=== PATIENT | male | born 1970 | race African-American/Black ===

== ENCOUNTER 2016-10-07 05:58 | Inpatient (IN) | payer MEDICAID ==
[~2016-10-07] VITALS: Ht 177.8 cm; Wt 96.2 kg
[~2016-10-07 05:58] MED LIST: ARIP10TA14 PO; SERT100T12 PO
[2016-10-07 08:43] VITALS: BP 142/80
[2016-10-07] MEDS ORDERED: RISP4 PO (08:58)
[2016-10-07] MEDS ORDERED: LORazepam 2 MG TABLET PO PRN (09:00)
[2016-10-07] MEDS ORDERED: ZOLPIDEM TARTRATE 10 MG TABLET PO PRN (09:00)
[2016-10-07] MEDS ORDERED: HALOPERIDOL 5 MG TABLET PO PRN (09:00)
[2016-10-07 10:08] VITALS: BP 141/81
[2016-10-07] MEDS ORDERED: PNEUMOCOCCAL VACCINE POLYVALENT 0.5 ML VIAL [PPSV23] IM ONE (13:00)
[2016-10-07] MEDS: BENZOCAINE/MENTHOL LOZENGE PO PRN (17:24)
[2016-10-07 17:38] VITALS: BP 138/91
[2016-10-07] MEDS ORDERED: OLANZapine 5 MG TABLET PO SCH (21:00)
[2016-10-08 00:45] VITALS: BP 125/82
[2016-10-08 08:27] VITALS: BP 130/80
[2016-10-08] MEDS ORDERED: BENZOCAINE/MENTHOL LOZENGE MM PRN (09:00)
[2016-10-08] MEDS ORDERED: ACETAMINOPHEN 325 MG TABLET PO PRN (09:00)
[2016-10-08] MEDS ORDERED: ALBUTEROL SULFATE HFA 90 MCG/PUFF 8 GM INHALER IH PRN (09:00)
[2016-10-08] MEDS ORDERED: FLUoxetine HCL 20 MG CAPSULE PO SCH (09:00)
[2016-10-08] MEDS ORDERED: IBUPROFEN 600 MG TABLET PO PRN (09:00)
[2016-10-08] MEDS ORDERED: PETROLATUM,WHITE 71 GM JELLY TP PRN (09:00)
[2016-10-08] MEDS ORDERED: BACITRACIN 28.4 GM OINTMENT TP PRN (09:00)
[2016-10-08] MEDS ORDERED: CloNIDine HCL 0.1 MG TABLET PO PRN (09:00)
[2016-10-08] MEDS ORDERED: ONDANSETRON HCL 4 MG TABLET PO PRN (09:00)
[2016-10-08] MEDS ORDERED: MAGNESIUM HYDROXIDE SUSPENSION 30 ML UDCUP PO PRN (09:00)
[2016-10-08] MEDS ORDERED: MAG HYDROX/AL HYDROX/SIMETH ES 30 ML SUSPENSION UDCUP PO PRN (09:00)
[2016-10-08] MEDS ORDERED: LOPERAMIDE HCL 2 MG CAPSULE PO PRN (09:00)
[2016-10-08] MEDS: CHOLECALCIFEROL (VIT D3) 1,000 UNITS TABLET PO SCH (09:02)
[2016-10-08] MEDS: BENZOCAINE/MENTHOL LOZENGE PO PRN (11:44)
[2016-10-08] MEDS ORDERED: BENZOCAINE 10% 7 GM GEL TP PRN (11:45)
[2016-10-08 16:00] VITALS: BP 126/73
[2016-10-08] MEDS: MIRTAZAPINE 30 MG TABLET PO SCH (21:09)
[2016-10-08] MEDS: RisperiDONE 4 MG TABLET PO SCH (21:09)
[2016-10-09 07:05] VITALS: BP 141/83
[2016-10-09 09:30] VITALS: BP 120/68
[2016-10-09] MEDS: CHOLECALCIFEROL (VIT D3) 1,000 UNITS TABLET PO SCH (10:15)
[2016-10-09] MEDS: LISINOPRIL 10 MG TABLET PO SCH (10:15)
[2016-10-09 16:00] VITALS: BP 110/64
[2016-10-09] MEDS: RisperiDONE 4 MG TABLET PO SCH (20:29)
[2016-10-09] MEDS: MIRTAZAPINE 30 MG TABLET PO SCH (20:29)
[2016-10-10 03:24] VITALS: BP 110/70
[2016-10-10 08:05] VITALS: BP 125/73
[2016-10-10] MEDS: LISINOPRIL 10 MG TABLET PO SCH (08:12)
[2016-10-10] MEDS: CHOLECALCIFEROL (VIT D3) 1,000 UNITS TABLET PO SCH (08:13)
[2016-10-10 16:00] VITALS: BP 123/73
[2016-10-10] MEDS: RisperiDONE 4 MG TABLET PO SCH (20:16)
[2016-10-10] MEDS: MIRTAZAPINE 30 MG TABLET PO SCH (20:16)
[2016-10-11 00:39] VITALS: BP 140/79
[2016-10-11 08:11] VITALS: BP 122/73
[2016-10-11 08:25] LABS: BASOPHILS % (AUTO) 0.8 % (0.0-2.0); EOSINOPHILS % (AUTO) 5.5 % (1.0-6.0); HEMATOCRIT 40.4 % (41-53); HEMOGLOBIN 12.6 g/dL (13.5-17.5); LYMPHOCYTES # (AUTO) 1.8 K/uL (1.0-4.8); LYMPHOCYTES % (AUTO) 46.7 % (22.0-44.0); MEAN CORPUSCULAR HEMOGLOBIN 26.2 pg (26.0-34.0); MEAN CORPUSCULAR HGB CONC 31.3 G/dL (31.0-37.0); MEAN CORPUSCULAR VOLUME 84 fL (80-100); MONOCYTES # (AUTO) 0.5 K/uL (0.1-1.0); MONOCYTES % (AUTO) 12.3 % (2.0-9.0); NEUTROPHILS # (AUTO) 1.3 K/uL (1.8-7.7); NEUTROPHILS % (AUTO) 34.7 % (40.0-70.0); PLATELET COUNT (AUTO) 305 K/uL (150-450); RED BLOOD CELL COUNT(AUTO) 4.82 MIL/uL (4.50-5.90); RED CELL DISTRIBUTION WIDTH 12.9 % (11.5-14.5); WHITE BLOOD COUNT (AUTO) 3.9 K/uL (4.5-11.0)
[2016-10-11] MEDS: LISINOPRIL 10 MG TABLET PO SCH (08:35)
[2016-10-11] MEDS: CHOLECALCIFEROL (VIT D3) 1,000 UNITS TABLET PO SCH (08:35)
[2016-10-11 09:07] LABS: ALANINE AMINOTRANSFERASE 49 U/L (12-78); ALBUMIN 3.6 g/dL (3.4-5.0); ANION GAP 8 mmol/L (8-16); ASPARTATE AMINOTRANSFERASE 23 U/L (15-37); BILIRUBIN,TOTAL 0.3 mg/dL (0.1-1.0); CALCIUM, TOTAL 8.7 mg/dL (8.8-10.5); CARBON DIOXIDE 29 mmol/L (22-29); CHLORIDE 102 mmol/L (98-107); CREATININE 0.96 mg/dL (0.60-1.30); GLOMERULAR FILTR. RATE CALC > 60 mL/min (>60); SODIUM SERUM 139 mmol/L (136-145); TOTAL PROTEIN, SERUM 7.1 g/dL (6.4-8.2); UREA NITROGEN, BLOOD 12 mg/dL (7-18)
[2016-10-11 17:32] VITALS: BP 124/73
[2016-10-11] MEDS: RisperiDONE 4 MG TABLET PO SCH (20:05)
[2016-10-11] MEDS: MIRTAZAPINE 30 MG TABLET PO SCH (20:06)
[2016-10-12 00:01] VITALS: BP 124/65
[2016-10-12] MEDS: FERROUS SULFATE 325 MG EC TABLET PO SCH ×2 (07:00→16:16)
[2016-10-12 08:12] VITALS: BP 117/60
[2016-10-12] MEDS: LISINOPRIL 10 MG TABLET PO SCH (08:59)
[2016-10-12] MEDS: CHOLECALCIFEROL (VIT D3) 1,000 UNITS TABLET PO SCH (08:59)
[2016-10-12 16:00] VITALS: BP 117/71
[2016-10-12] MEDS: MIRTAZAPINE 30 MG TABLET PO SCH (20:42)
[2016-10-12] MEDS: RisperiDONE 4 MG TABLET PO SCH (20:42)
[2016-10-13 00:35] VITALS: BP 113/60
[2016-10-13] MEDS: FERROUS SULFATE 325 MG EC TABLET PO SCH (06:47)
[2016-10-13 08:03] VITALS: BP 130/76
[2016-10-13] MEDS: LISINOPRIL 10 MG TABLET PO SCH (08:09)
[2016-10-13] MEDS: CHOLECALCIFEROL (VIT D3) 1,000 UNITS TABLET PO SCH (08:09)
[2016-10-13] MEDS ORDERED: MIRT30 PO (11:34)
[2016-10-13] MEDS ORDERED: FERR-89 PO (11:35)
[2016-10-13] MEDS ORDERED: CHOL100034 PO (11:37)
[2016-10-13] MEDS ORDERED: LISI-661 PO (11:49)
[2016-10-13] MEDS ORDERED: MIRTAZAPINE 15 MG TABLET PO SCH (21:00)
== END 2016-10-13 13:37 | disposition home or self-care (01) | DRG 750 ==
LOC: EDSTATUS 05:58 → B2S 08:59
PROVIDERS: ADMIT Psychiatry & Neurology Psychiatry; ATTEND Psychiatry & Neurology Psychiatry
DX: F25.0 Schizoaffective disorder, bipolar type (principal); F15.20 Other stimulant dependence, uncomplicated; I10 Essential (primary) hypertension; E55.9 Vitamin D deficiency, unspecified; Z59.0 Homelessness; K59.00 Constipation, unspecified; G47.00 Insomnia, unspecified; D64.9 Anemia, unspecified; Z23 Encounter for immunization; Z91.14 Patient's other noncompliance with medication regimen
CPT/HCPCS: 82306; 90471

== ENCOUNTER 2017-11-15 03:08 | Inpatient (IN) | payer MEDICAID ==
[~2017-11-15] VITALS: Ht 172.7 cm; Wt 83.4 kg
[~2017-11-15 03:08] MED LIST changes: -ARIP10TA14 PO; +CHOL100034 PO; +FERR-89 PO; +LISI-661 PO; +MIRT30 PO; +RISP4 PO; -SERT100T12 PO
[2017-11-15 05:05] LABS: BASOPHILS % (AUTO) 0.6 % (0.0-2.0); EOSINOPHILS % (AUTO) 2.7 % (1.0-6.0); HEMATOCRIT 31.8 % (41-53); HEMOGLOBIN 10.6 g/dL (13.5-17.5); LYMPHOCYTES # (AUTO) 1.5 K/uL (1.0-4.8); LYMPHOCYTES % (AUTO) 17.6 % (22.0-44.0); MEAN CORPUSCULAR HEMOGLOBIN 27.6 pg (26.0-34.0); MEAN CORPUSCULAR HGB CONC 33.4 G/dL (31.0-37.0); MEAN CORPUSCULAR VOLUME 83 fL (80-100); MONOCYTES # (AUTO) 0.7 K/uL (0.1-1.0); MONOCYTES % (AUTO) 7.9 % (2.0-9.0); NEUTROPHILS # (AUTO) 6.1 K/uL (1.8-7.7); NEUTROPHILS % (AUTO) 71.2 % (40.0-70.0); PLATELET COUNT (AUTO) 420 K/uL (150-450); RED BLOOD CELL COUNT(AUTO) 3.86 MIL/uL (4.50-5.90); RED CELL DISTRIBUTION WIDTH 13.2 % (11.5-14.5)
[2017-11-15 05:12] LABS: ANION GAP 6 mmol/L (8-16); CALCIUM, TOTAL 8.1 mg/dL (8.8-10.5); CARBON DIOXIDE 27 mmol/L (22-29); CHLORIDE 105 mmol/L (98-107); CREATININE 0.97 mg/dL (0.60-1.30); GLOMERULAR FILTR. RATE CALC > 60 mL/min (>60); GLUCOSE,RANDOM 109 mg/dL (70-110); POTASSIUM 3.6 mmol/L (3.5-5.1); SODIUM SERUM 138 mmol/L (136-145); UREA NITROGEN, BLOOD 18 mg/dL (7-18)
[2017-11-15 05:17] LABS: ALANINE AMINOTRANSFERASE 55 U/L (12-78); ALBUMIN 2.9 g/dL (3.4-5.0); ALKALINE PHOSPHATASE 78 U/L (46-116); ASPARTATE AMINOTRANSFERASE 26 U/L (15-37); BILIRUBIN,TOTAL 0.5 mg/dL (0.1-1.0); TOTAL PROTEIN, SERUM 7.7 g/dL (6.4-8.2)
[2017-11-15] MEDS ORDERED: HALOPERIDOL 5 MG TABLET PO PRN (06:45)
[2017-11-15] MEDS ORDERED: ZOLPIDEM TARTRATE 10 MG TABLET PO PRN (06:45)
[2017-11-15 16:31] VITALS: BP 131/85
[2017-11-15] MEDS: PENICILLIN V POTASSIUM 500 MG TABLET PO SCH (21:34)
[2017-11-16 01:00] VITALS: BP 123/69
[2017-11-16 08:00] VITALS: BP 132/76
[2017-11-16] MEDS: PENICILLIN V POTASSIUM 500 MG TABLET PO SCH ×4 (08:29→20:33)
[2017-11-16 08:52] LABS: CHOL/HDL RATIO 2.9 (4.2-7.3)
[2017-11-16] MEDS ORDERED: ACETAMINOPHEN 325 MG TABLET PO PRN (11:00)
[2017-11-16] MEDS ORDERED: MAGNESIUM HYDROXIDE SUSPENSION 30 ML UDCUP PO PRN (11:00)
[2017-11-16] MEDS ORDERED: MAG HYDROX/AL HYDROX/SIMETH ES 30 ML SUSPENSION UDCUP PO PRN (11:00)
[2017-11-16] MEDS ORDERED: IBUPROFEN 400 MG TABLET PO PRN (11:00)
[2017-11-16] MEDS ORDERED: ONDANSETRON HCL 4 MG TABLET PO PRN ×2 (11:00)
[2017-11-16] MEDS ORDERED: ALBUTEROL SULFATE HFA 90 MCG/PUFF 8 GM INHALER IH PRN (11:00)
[2017-11-16] MEDS ORDERED: DOCUSATE SODIUM 100 MG CAPSULE PO PRN (11:00)
[2017-11-16] MEDS ORDERED: PETROLATUM,WHITE 71 GM JELLY TP PRN (11:00)
[2017-11-16 16:15] VITALS: BP 136/78
[2017-11-16] MEDS: FERROUS SULFATE 325 MG EC TABLET PO SCH (17:13)
[2017-11-16] MEDS: CALCIUM OYSTER SHELL 500 MG TABLET PO SCH (17:13)
[2017-11-16] MEDS: RisperiDONE 2 MG TABLET PO SCH (20:33)
[2017-11-17 01:32] VITALS: BP 113/73
[2017-11-17] MEDS: FERROUS SULFATE 325 MG EC TABLET PO SCH ×2 (06:38→16:07)
[2017-11-17 08:23] VITALS: BP 116/82
[2017-11-17 08:41] LABS: HEMOGLOBIN A1C 6.3 % (4.5-6.2)
[2017-11-17] MEDS: CHOLECALCIFEROL (VIT D3) 1,000 UNITS TABLET PO SCH (08:41)
[2017-11-17] MEDS: PENICILLIN V POTASSIUM 500 MG TABLET PO SCH ×4 (08:42→20:08)
[2017-11-17] MEDS: CALCIUM OYSTER SHELL 500 MG TABLET PO SCH ×3 (08:42→16:07)
[2017-11-17] MEDS: LISINOPRIL 10 MG TABLET PO SCH (08:42)
[2017-11-17 09:19] LABS: CHOL/HDL RATIO 3.3 (4.2-7.3); THYROID STIMULATING HORMONE 0.71 uIU/mL (0.36-3.74)
[2017-11-17 16:05] VITALS: BP 127/92
[2017-11-17] MEDS: RisperiDONE 2 MG TABLET PO SCH (20:08)
[2017-11-18 06:29] VITALS: BP 124/77
[2017-11-18] MEDS: FERROUS SULFATE 325 MG EC TABLET PO SCH ×2 (06:47→17:00)
[2017-11-18 08:16] VITALS: BP 117/69
[2017-11-18] MEDS: PENICILLIN V POTASSIUM 500 MG TABLET PO SCH ×3 (08:42→17:00)
[2017-11-18] MEDS: CALCIUM OYSTER SHELL 500 MG TABLET PO SCH ×3 (08:43→17:00)
[2017-11-18] MEDS: CHOLECALCIFEROL (VIT D3) 1,000 UNITS TABLET PO SCH (08:43)
[2017-11-18] MEDS: LISINOPRIL 10 MG TABLET PO SCH (08:43)
[2017-11-18 20:46] VITALS: BP 136/79
[2017-11-18] MEDS: RisperiDONE 2 MG TABLET PO SCH (21:37)
[2017-11-19] MEDS: FERROUS SULFATE 325 MG EC TABLET PO SCH ×2 (08:00→16:30)
[2017-11-19] MEDS: CEPHALEXIN MONOHYDRATE 500 MG CAPSULE PO SCH ×3 (08:01→16:30)
[2017-11-19] MEDS: CHOLECALCIFEROL (VIT D3) 1,000 UNITS TABLET PO SCH (08:01)
[2017-11-19] MEDS: LISINOPRIL 10 MG TABLET PO SCH (08:01)
[2017-11-19] MEDS: SULFAMETHOX/TRIMETH DS 800-160 MG/TABLET PO SCH ×2 (08:01→16:30)
[2017-11-19] MEDS: CALCIUM OYSTER SHELL 500 MG TABLET PO SCH ×3 (08:01→16:30)
[2017-11-19 08:32] VITALS: BP 129/89
[2017-11-19] MEDS ORDERED: SULFAMETHOX/TRIMETH DS 800-160 MG/TABLET PO SCH (09:00)
[2017-11-19] MEDS ORDERED: CEPHALEXIN MONOHYDRATE 500 MG CAPSULE PO SCH (09:00)
[2017-11-19 16:00] VITALS: BP 140/93
[2017-11-19] MEDS: RisperiDONE 2 MG TABLET PO SCH (21:35)
[2017-11-20] MEDS: FERROUS SULFATE 325 MG EC TABLET PO SCH ×2 (06:50→16:29)
[2017-11-20 08:15] VITALS: BP 121/78
[2017-11-20] MEDS: CEPHALEXIN MONOHYDRATE 500 MG CAPSULE PO SCH ×3 (08:30→16:29)
[2017-11-20] MEDS: SULFAMETHOX/TRIMETH DS 800-160 MG/TABLET PO SCH ×2 (08:30→16:29)
[2017-11-20] MEDS: CHOLECALCIFEROL (VIT D3) 1,000 UNITS TABLET PO SCH (08:30)
[2017-11-20] MEDS: LISINOPRIL 10 MG TABLET PO SCH (08:31)
[2017-11-20] MEDS: CALCIUM OYSTER SHELL 500 MG TABLET PO SCH ×3 (08:31→16:29)
[2017-11-20] MEDS ORDERED: CARBAMIDE PEROXIDE 6.5% 15 ML OTIC SOLUTION AS ONE (10:00)
[2017-11-20 21:07] VITALS: BP 136/81
[2017-11-20] MEDS: RisperiDONE 2 MG TABLET PO SCH (21:32)
[2017-11-21] MEDS: FERROUS SULFATE 325 MG EC TABLET PO SCH ×2 (06:52→16:05)
[2017-11-21 08:08] VITALS: BP 102/75
[2017-11-21] MEDS: SULFAMETHOX/TRIMETH DS 800-160 MG/TABLET PO SCH ×2 (08:39→16:06)
[2017-11-21] MEDS: CEPHALEXIN MONOHYDRATE 500 MG CAPSULE PO SCH ×3 (08:40→16:06)
[2017-11-21] MEDS: LISINOPRIL 10 MG TABLET PO SCH (08:41)
[2017-11-21] MEDS: CALCIUM OYSTER SHELL 500 MG TABLET PO SCH ×3 (08:41→16:05)
[2017-11-21] MEDS: CHOLECALCIFEROL (VIT D3) 1,000 UNITS TABLET PO SCH (08:41)
[2017-11-21 16:48] VITALS: BP 132/74
[2017-11-21] MEDS: RisperiDONE 2 MG TABLET PO SCH (20:19)
[2017-11-22] MEDS: FERROUS SULFATE 325 MG EC TABLET PO SCH ×2 (06:47→16:22)
[2017-11-22] MEDS: SULFAMETHOX/TRIMETH DS 800-160 MG/TABLET PO SCH ×2 (08:54→16:22)
[2017-11-22] MEDS: LORazepam 2 MG TABLET PO PRN ×2 (08:54→16:24)
[2017-11-22] MEDS: CHOLECALCIFEROL (VIT D3) 1,000 UNITS TABLET PO SCH (08:54)
[2017-11-22] MEDS: CEPHALEXIN MONOHYDRATE 500 MG CAPSULE PO SCH ×3 (08:54→16:22)
[2017-11-22] MEDS: LISINOPRIL 10 MG TABLET PO SCH (08:54)
[2017-11-22] MEDS: MULTIVITAMINS WITH MINERALS, THERAPEUTIC TABLET PO SCH (08:54)
[2017-11-22] MEDS: CALCIUM OYSTER SHELL 500 MG TABLET PO SCH ×3 (08:55→16:23)
[2017-11-22 10:32] VITALS: BP 138/76
[2017-11-22 16:00] VITALS: BP 101/69
[2017-11-22] MEDS: RisperiDONE 2 MG TABLET PO SCH (20:24)
[2017-11-23] MEDS: FERROUS SULFATE 325 MG EC TABLET PO SCH ×2 (06:58→17:30)
[2017-11-23] MEDS: CEPHALEXIN MONOHYDRATE 500 MG CAPSULE PO SCH ×3 (07:49→17:55)
[2017-11-23] MEDS: MULTIVITAMINS WITH MINERALS, THERAPEUTIC TABLET PO SCH (07:49)
[2017-11-23] MEDS: LISINOPRIL 10 MG TABLET PO SCH (07:50)
[2017-11-23] MEDS: SULFAMETHOX/TRIMETH DS 800-160 MG/TABLET PO SCH ×2 (07:50→17:55)
[2017-11-23] MEDS: CHOLECALCIFEROL (VIT D3) 1,000 UNITS TABLET PO SCH (07:50)
[2017-11-23] MEDS: CALCIUM OYSTER SHELL 500 MG TABLET PO SCH ×3 (07:59→17:55)
[2017-11-23 08:01] VITALS: BP 102/81
[2017-11-23] MEDS: LORazepam 2 MG TABLET PO PRN (15:54)
[2017-11-23 16:30] VITALS: BP 130/79
[2017-11-23] MEDS: RisperiDONE 2 MG TABLET PO SCH (21:38)
[2017-11-24] MEDS: FERROUS SULFATE 325 MG EC TABLET PO SCH (07:54)
[2017-11-24 08:05] VITALS: BP 95/56
[2017-11-24] MEDS: CEPHALEXIN MONOHYDRATE 500 MG CAPSULE PO SCH (08:29)
[2017-11-24] MEDS: CHOLECALCIFEROL (VIT D3) 1,000 UNITS TABLET PO SCH (08:29)
[2017-11-24] MEDS: LISINOPRIL 10 MG TABLET PO SCH (08:29)
[2017-11-24] MEDS: MULTIVITAMINS WITH MINERALS, THERAPEUTIC TABLET PO SCH (08:30)
[2017-11-24] MEDS: SULFAMETHOX/TRIMETH DS 800-160 MG/TABLET PO SCH (08:30)
[2017-11-24] MEDS: CALCIUM OYSTER SHELL 500 MG TABLET PO SCH (08:30)
[2017-11-24] MEDS ORDERED: OSCD250 PO (10:06)
== END 2017-11-24 10:30 | disposition home or self-care (01) | DRG 750 ==
LOC: EMS 03:09 → B2S 14:58 → 3EC 11-18 19:15
DX: F25.1 Schizoaffective disorder, depressive type (principal); E46 Unspecified protein-calorie malnutrition; E83.51 Hypocalcemia; R45.851 Suicidal ideations; E88.09 Other disorders of plasma-protein metabolism, not elsewhere classified; R45.850 Homicidal ideations; D64.9 Anemia, unspecified; M79.673 Pain in unspecified foot; I10 Essential (primary) hypertension; Z59.0 Homelessness; Z79.899 Other long term (current) drug therapy; Z91.19 Patient's noncompliance with other medical treatment and regimen; Z68.28 Body mass index [BMI] 28.0-28.9, adult
CPT/HCPCS: 82728; 83036; 83540; 83550; 84443; 87081; 99285; G0480

== ENCOUNTER 2017-11-18 15:38 | Emergency (ER) | payer MEDICAID ==
[~2017-11-18] VITALS: Ht 172.7 cm; Wt 86.4 kg
[2017-11-18] MEDS ORDERED: 0.9% SODIUM CHLORIDE 10 ML SYRINGE IVP PRN (16:45)
[2017-11-18 17:21] LABS: BASOPHILS % (AUTO) 1.4 % (0.0-2.0); EOSINOPHILS % (AUTO) 3.6 % (1.0-6.0); HEMATOCRIT 33.4 % (41-53); HEMOGLOBIN 11.1 g/dL (13.5-17.5); LYMPHOCYTES # (AUTO) 2.3 K/uL (1.0-4.8); LYMPHOCYTES % (AUTO) 34.1 % (22.0-44.0); MEAN CORPUSCULAR HEMOGLOBIN 27.2 pg (26.0-34.0); MEAN CORPUSCULAR HGB CONC 33.1 G/dL (31.0-37.0); MEAN CORPUSCULAR VOLUME 82 fL (80-100); MONOCYTES # (AUTO) 0.9 K/uL (0.1-1.0); MONOCYTES % (AUTO) 12.8 % (2.0-9.0); NEUTROPHILS # (AUTO) 3.2 K/uL (1.8-7.7); NEUTROPHILS % (AUTO) 48.1 % (40.0-70.0); PLATELET COUNT (AUTO) 486 K/uL (150-450); RED BLOOD CELL COUNT(AUTO) 4.07 MIL/uL (4.50-5.90); RED CELL DISTRIBUTION WIDTH 13.2 % (11.5-14.5)
[2017-11-18 17:33] LABS: ANION GAP 6 mmol/L (8-16); CALCIUM, TOTAL 8.7 mg/dL (8.8-10.5); CARBON DIOXIDE 30 mmol/L (22-29); CHLORIDE 103 mmol/L (98-107); CREATININE 0.92 mg/dL (0.60-1.30); GLOMERULAR FILTR. RATE CALC > 60 mL/min (>60); GLUCOSE,RANDOM 106 mg/dL (70-110); POTASSIUM 4.1 mmol/L (3.5-5.1); SODIUM SERUM 139 mmol/L (136-145); UREA NITROGEN, BLOOD 16 mg/dL (7-18)
[2017-11-18 17:38] LABS: ALANINE AMINOTRANSFERASE 34 U/L (12-78); ALBUMIN 2.5 g/dL (3.4-5.0); ALKALINE PHOSPHATASE 79 U/L (46-116); ASPARTATE AMINOTRANSFERASE 15 U/L (15-37); BILIRUBIN,TOTAL 0.2 mg/dL (0.1-1.0); TOTAL PROTEIN, SERUM 7.4 g/dL (6.4-8.2)
[2017-11-18 17:40] LABS: INR 1.2 (0.9-1.1); PROTHROMBIN TIME 12.6 SEC (9.4-11.6)
[2017-11-18 17:41] LABS: LACTIC ACID 0.8 mmol/L (0.4-2.0)
[2017-11-18] MEDS ORDERED: CEFTAROLINE 600 MG/D5W 250 ML IV ONE (18:00)
[2017-11-18 19:53] VITALS: BP 129/80
== END 2017-11-18 20:07 | disposition home or self-care (01) ==
LOC: EMS 15:39
DX: L03.032 Cellulitis of left toe (principal)
CPT/HCPCS: 36415; 80053; 83605; 85025; 85610; 87040; 87070; 87205; 93005; 96365; 99285; J0712

== ENCOUNTER 2018-08-29 08:05 | Emergency (ER) | payer MEDICAID ==
[~2018-08-29] VITALS: Ht 177.8 cm; Wt 86.4 kg
[~2018-08-29 08:05] MED LIST changes: -MIRT30 PO; +OSCD250 PO
[2018-08-29] MEDS ORDERED: OLAN5TAB2 PO (08:19)
[2018-08-29 08:59] LABS: BASOPHILS % (AUTO) 0.9 % (0.0-2.0); EOSINOPHILS % (AUTO) 2.1 % (1.0-6.0); HEMATOCRIT 38.2 % (41-53); HEMOGLOBIN 12.3 g/dL (13.5-17.5); LYMPHOCYTES # (AUTO) 1.8 K/uL (1.0-4.8); LYMPHOCYTES % (AUTO) 49.9 % (22.0-44.0); MEAN CORPUSCULAR HEMOGLOBIN 26.8 pg (26.0-34.0); MEAN CORPUSCULAR HGB CONC 32.3 G/dL (31.0-37.0); MEAN CORPUSCULAR VOLUME 83 fL (80-100); MONOCYTES # (AUTO) 0.5 K/uL (0.1-1.0); MONOCYTES % (AUTO) 13.5 % (2.0-9.0); NEUTROPHILS # (AUTO) 1.2 K/uL (1.8-7.7); NEUTROPHILS % (AUTO) 33.6 % (40.0-70.0); PLATELET COUNT (AUTO) 303 K/uL (150-450)
[2018-08-29 09:06] LABS: ANION GAP 8 mmol/L (8-16); CARBON DIOXIDE 28 mmol/L (22-29); CHLORIDE 106 mmol/L (98-107); CREATININE 0.93 mg/dL (0.60-1.30); GLUCOSE,RANDOM 102 mg/dL (70-110); POTASSIUM 3.9 mmol/L (3.5-5.1); SODIUM SERUM 142 mmol/L (136-145); UREA NITROGEN, BLOOD 16 mg/dL (7-18)
[2018-08-29 09:07] LABS: CALCIUM, TOTAL 9.4 mg/dL (8.8-10.5); GLOMERULAR FILTR. RATE CALC > 60 mL/min (>60)
[2018-08-29 09:13] LABS: ALANINE AMINOTRANSFERASE 23 U/L (12-78); ALBUMIN 3.7 g/dL (3.4-5.0); ALKALINE PHOSPHATASE 84 U/L (46-116); ASPARTATE AMINOTRANSFERASE 19 U/L (15-37); BILIRUBIN,TOTAL 0.4 mg/dL (0.1-1.0); TOTAL PROTEIN, SERUM 7.2 g/dL (6.4-8.2)
[2018-08-29] MEDS ORDERED: HALOPERIDOL 5 MG TABLET PO ONE (09:15)
[2018-08-29 14:10] VITALS: BP 140/88
== END 2018-08-29 14:15 | disposition home or self-care (01) ==
LOC: EMS 08:08
DX: R44.0 Auditory hallucinations (principal); R44.1 Visual hallucinations; F20.9 Schizophrenia, unspecified; F19.90 Other psychoactive substance use, unspecified, uncomplicated; Z79.899 Other long term (current) drug therapy
CPT/HCPCS: 36415; 80053; 85025; 99284; G0480